=== PATIENT | female | born 1955 ===

== ENCOUNTER 2018-02-04 11:22 | Day surgery (SDC) | payer OTHER ==
[2018-02-04 11:49] VITALS: BMI 23.0
[2018-02-04] MEDS ORDERED: Lactated Ringer's 500 ML IV ONE ×2 (12:05)
[2018-02-04 12:08] VITALS: O2SAT 100
[2018-02-04] MEDS ORDERED: Propofol 10 mg/ml Inj (20 ML) ONE (13:45)
[2018-02-04 14:21] VITALS: TEMP 98
[2018-02-04 14:29] VITALS: BP 112/78; PULSE 74; RESP 14
== END 2018-02-04 14:53 | disposition home or self-care (01) ==
LOC: H.ENDO 11:22
PROVIDERS: ATTEND Internal Medicine Gastroenterology
DX: D50.9 Iron deficiency anemia, unspecified (principal); K57.30 Diverticulosis of large intestine without perforation or abscess without bleeding
CPT/HCPCS: 45378; J2001; J2704; J7120

== ENCOUNTER 2018-04-15 09:42 | Day surgery (SDC) | payer OTHER ==
[2018-04-15 10:18] VITALS: BMI 24.5
[2018-04-15 10:33] VITALS: O2SAT 100
[2018-04-15] MEDS ORDERED: Lactated Ringer's 500 ML IV ONE (10:46)
[2018-04-15] MEDS ORDERED: Propofol 10 mg/ml Inj (20 ML) ONE (10:50)
[2018-04-15 11:43] VITALS: RESP 18
[2018-04-15 12:15] VITALS: BP 128/76; PULSE 80; TEMP 97.6
== END 2018-04-15 15:18 | disposition home or self-care (01) ==
LOC: H.ENDO 09:42
PROVIDERS: ATTEND Internal Medicine Gastroenterology
DX: K31.89 Other diseases of stomach and duodenum (principal); E78.5 Hyperlipidemia, unspecified; I10 Essential (primary) hypertension; G40.909 Epilepsy, unspecified, not intractable, without status epilepticus; Z86.73 Personal history of transient ischemic attack (TIA), and cerebral infarction without residual deficits; D50.9 Iron deficiency anemia, unspecified; R12 Heartburn
CPT/HCPCS: 43239; 88305; J2001; J2704; J7120